=== PATIENT | male | born 1950 | race Caucasian/White ===

== ENCOUNTER 2017-02-26 15:50 | Outpatient (CLI) | payer BC ==
--- NOTE | 2017-02-26 16:51 | RAD ---
ABDOMEN ONE VIEW 02/26/17 HISTORY: Renal calculi. COMPARISON: 02/26/16. FINDINGS: A large amount of stool is apparent throughout the colon and rectum. Renal outlines are predominantly obscured. Small calcification projecting over the lateral superior margin of the left renal shadow i s similar in appearance to the prior study. Phleboliths project over the pelvis. IMPRESSION: 1. Left renal calculus. 2. Constipation. POS: [facility]
[2017-02-26 17:08] LABS: Bilirubin Negative (Negative); Blood, Urine Negative (Negative); Clarity CLEAR (Clear); Glucose, Urine (Dipstick) Negative (Negative); Leukocyte Negative (Negative); Nitrite Negative (Negative); Protein, Urine (Dipstick) Negative (Neg-Trace); Specific Gravity, Urine 1.028 (1.002-1.036); pH, Urine 6.5 (5.0-9.0)
--- NOTE | 2017-02-26 17:09 | ULT ---
RENAL ULTRASOUND 02/26/17 COMPARISON: 02/26/16 CLINICAL HISTORY: Renal calculi. FINDINGS: No overt hydronephrosis of the right kidney. There is mild prominence of the left renal collecting sy stem, similar appearing, which may be on the basis of parapelvic cyst formation. The described calcif ication of concurrent radiograph is not well depicted on the basis of this exam. Urinary bladder is g rossly unremarkable. IMPRESSION: Similar appearance of left kidney which may be on the basis of parapelvic cyst formation. No discrete shadowing nephrolithiasis evident sonographically. POS: [facility]
[2017-02-26 17:10] LABS: Bacteria/HPF None Seen HPF (None Seen); Hyaline Casts/LPF 0-3 HYALINE CAST LPF (0-3 Hyaline); RBC/HPF None Seen HPF (0-3); Squamous Epithelial None Seen HPF (0-3); WBC/HPF 0-3 HPF (0-3)
[2017-02-26 17:18] LABS: Anion Gap 13 mmol/L (10-20); BUN (Urea Nitrogen) 23 mg/dL (8.4-25.7); Calc. Creatinine Clearance 0 mL/min (70-130); Carbon Dioxide 25 mmol/L (23-31); Chloride 107 mmol/L (98-107); Estimated GFR-MDRD 70; Glucose 80 mg/dL (80-115); Potassium 4.1 mmol/L (3.5-5.1); Sodium 141 mmol/L (136-145)
== END 2017-02-26 15:51 | disposition home or self-care (01) ==
LOC: ULT 15:50
PROVIDERS: ATTEND Urology
DX: Z12.5 Encounter for screening for malignant neoplasm of prostate (principal); N20.0 Calculus of kidney; N28.1 Cyst of kidney, acquired; N40.1 Benign prostatic hyperplasia with lower urinary tract symptoms; R35.0 Frequency of micturition; K59.00 Constipation, unspecified
CPT/HCPCS: 74018; 76770; 80048; 81001; 87086; 88112; G0103

== ENCOUNTER 2017-04-30 09:19 | Outpatient (CLI) | payer BC ==
[2017-04-30] MEDS ORDERED: Iopamidol 370 76% 100 ML VIAL ONE (09:32)
== END 2017-04-30 09:20 | disposition home or self-care (01) ==
LOC: BICCT 09:19
PROVIDERS: ATTEND Urology
DX: R31.0 Gross hematuria (principal); N20.0 Calculus of kidney; N28.1 Cyst of kidney, acquired
CPT/HCPCS: 74178

== ENCOUNTER 2017-05-08 11:39 | Outpatient (CLI) | payer BC ==
[2017-05-08 13:14] LABS: Hemoglobin 15.4 g/dL (14.0-18.0); Mean Corpuscular Hemoglobin 34.1 pg (27.0-31.0); Mean Platelet Volume 7.8 fL (7.4-10.4); Platelet Count 162 thou/uL (130-400); RBC Distribution Width 11.6 % (11.5-14.5); Red Blood Cell (RBC) Count 4.52 mill/uL (4.70-6.10); White Blood Cell (WBC) Count 4.4 thou/uL (4.8-10.8)
[2017-05-08 13:19] LABS: Bilirubin Negative (Negative); Blood, Urine Negative (Negative); Clarity CLEAR (Clear); Glucose, Urine (Dipstick) Negative (Negative); Leukocyte Negative (Negative); Nitrite Negative (Negative); Protein, Urine (Dipstick) Negative (Neg-Trace); Specific Gravity, Urine 1.021 (1.002-1.036)
[2017-05-08 13:23] LABS: PTT 28.4 SEC (22.9-36.1)
[2017-05-08 13:25] LABS: Bacteria/HPF None Seen HPF (None Seen); Hyaline Casts/LPF 0-3 HYALINE CAST LPF (0-3 Hyaline); Squamous Epithelial 0-3 HPF (0-3); WBC/HPF 0-3 HPF (0-3)
[2017-05-08 13:42] LABS: Anion Gap 10 mmol/L (10-20); BUN (Urea Nitrogen) 14 mg/dL (8.4-25.7); Calc. Creatinine Clearance 0 mL/min (70-130); Calcium 9.3 mg/dL (7.8-10.44); Carbon Dioxide 24 mmol/L (23-31); Chloride 107 mmol/L (98-107); Estimated GFR-MDRD Greater than 90; Glucose 80 mg/dL (80-115); Potassium 4.4 mmol/L (3.5-5.1); Sodium 137 mmol/L (136-145)
[2017-05-08 13:48] LABS: RBC/HPF 0-3 HPF (0-3)
--- NOTE | 2017-05-21 22:49 | EKG ---
Test Reason : Blood Pressure : / mmHG Vent. Rate : 064 BPM Atrial Rate : 064 BPM P-R Int : 158 ms QRS Dur : 088 ms QT Int : 418 ms P-R-T Axes : 041 057 040 degrees QTc Int : 431 ms Normal sinus rhythm Normal ECG When compared with ECG of 17-JUN-2014 09:14, No significant change was found Confirmed by Vivek OLIVARES ([id number]) on 05/21/2017 10:49:12 PM Referred By: DESMOND Confirmed By:Vivek OLIVARES
== END 2017-05-08 11:40 | disposition home or self-care (01) ==
LOC: LABBT 11:39
PROVIDERS: ATTEND Urology
DX: Z01.818 Encounter for other preprocedural examination (principal); R31.0 Gross hematuria
CPT/HCPCS: 80048; 81001; 85027; 85610; 85730; 87086; 93005; 93010

== ENCOUNTER 2017-05-14 06:57 | Day surgery (SDC) | payer BC ==
[2017-05-08 12:27] VITALS: BMI 26.5
[2017-05-14] MEDS ORDERED: Iothalamate Meglumine 60% 50 ML VIAL FS ONE (10:34)
[2017-05-14] MEDS ORDERED: Fentanyl 100 MCG/2 ML VIAL ONE (10:36)
[2017-05-14] MEDS ORDERED: Levofloxacin 500 mg/D5W 100 ml Premix Bag ONE (10:41)
[2017-05-14] MEDS ORDERED: Dexamethasone 20 MG/5 ML VIAL ONE (13:05)
[2017-05-14] MEDS ORDERED: Lidocaine 1% PF 5 ML VIAL ONE (13:05)
[2017-05-14] MEDS ORDERED: PROPOFOL 200 MG/20 ML VIAL ONE (13:05)
[2017-05-14] MEDS ORDERED: Ondansetron HCl/PF 4 MG/2 ML Vial ONE (13:05)
[2017-05-14] MEDS ORDERED: Oxybutynin 5 MG TAB ONE (13:14)
[2017-05-14] MEDS ORDERED: Phenazopyridine HCl 97.5 MG TABLET ONE (13:17)
--- NOTE | 2017-05-14 14:16 | OP ---
DATE OF PROCEDURE: 05/14/2017 PREOPERATIVE DIAGNOSES: 1. 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 2. History of benign prostatic hypertrophy status post transurethral resection of prostate. 3. History of nonobstructing bilateral renal calculi, right punctate, left renal calculi measuring 4 x 7 mm. 4. History of bilateral peripelvic cysts, left greater than right. 5. History of gross hematuria. POSTOPERATIVE DIAGNOSES: 1. 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 2. History of benign prostatic hypertrophy status post transurethral resection of prostate. 3. History of nonobstructing bilateral renal calculi, right punctate, left renal calculi measuring 4 x 7 mm. 4. History of bilateral peripelvic cysts, left greater than right. 5. History of gross hematuria. PROCEDURES: Cystoscopy, proximal penile urethral biopsy, fulguration of biopsy site, Murray catheter placement. SURGEON: July Perez D.O. ANESTHESIA: LMA. COMPLICATIONS: None apparent. SPECIMEN: Proximal penile pedunculated nonspecific urethral lesion biopsy. INTRAOPERATIVE FINDINGS: 1. Bladder demonstrates no recurrent large bladder diverticulum, small scattered cellulae formation. 2. History of TURP with good TUR defect, no evidence of bladder neck contracture. 3. As previously noted on flexible cystoscopy, a pedunculated dorsal lesion located in the proximal penile urethra distal to the sphincter approximately 6- 7 mm. INDICATIONS FOR THE PROCEDURE AND HISTORY: Mr. Esquivel is a 66-year-old male with history of very large bladder diverticulum, status post diverticulectomy status post TURP. His voiding status is stable. He does have a prior history of gross hematuria and cytology has been negative. Last cytology negative of record is from 02/2017. He presented for repeat cystoscopy as he had gross hematuria. Restaging CT demonstrated nonobstructing bilateral renal calculi. Cystoscopy locally demonstrated a nonspecific with pedunculated proximal penile urethral lesion. Advised regarding biopsy under anesthesia as it is a difficult location to biopsy under local. The patient desired to proceed. Risks and complications of the procedure was reviewed with him in detail including, but not limited to, bleeding, pain, infection, possible stricture, UTI. All questions answered to his satisfaction and he desired to proceed. DESCRIPTION OF THE PROCEDURE: After an informed consent is signed, the patient is taken to the operating room, placed in dorsal lithotomy position. Bilateral NASRA hose, SCDs, and broad-spectrum antibiotics were provided. A 21 Armenian cystoscope was utilized for cystoscopy which demonstrated subtle early proximal penile urethral stricture not warranting treatment. Just proximal to this in the proximal penile urethra, there is pedunculated 6-7 mm mucosal lesion of unclear etiology. Does not have a typical appearance of transitional cell carcinoma. The prostatic urethra demonstrated a good TUR defect with no evidence of bladder neck contracture. The bladder was entered with ease. The UO's were identified with clear efflux of urine. There were approximately 6-8 mm proximal to the bladder neck. There is no gross evidence of recurrent large bladder diverticulum intermittent areas of cellulae trabeculation were noted. At this time, we used an endoscopic biopsy forceps to engage the lesion and this was removed completely with biopsy forceps. The bed of the biopsy was fulgurated with spot cautery using endoscopic Bugbee. I did not aggressively cauterized to prevent urethral stricture. Given that it was fulgurated in this region as well, I did leave an indwelling Murray catheter. An 18 Armenian 2-way was able to be passed without any issues. This was attached to leg bag gravity bag without issues. We will follow up with me on Friday for catheter removal and review of pathology. He is discharged with [place] 5/325, ciprofloxacin, Colace p.r.n. MTDD
== END 2017-05-15 16:10 | disposition home or self-care (01) ==
LOC: SDC 06:57
PROVIDERS: ATTEND Urology
PROC: 0T5D8ZZ Destruction of Urethra, Via Natural or Artificial Opening Endoscopic (ICD-10-PCS; principal; 2017-05-14)
PROC: 0TBD8ZX Excision of Urethra, Via Natural or Artificial Opening Endoscopic, Diagnostic (ICD-10-PCS; principal; 2017-05-14)
DX: N36.2 Urethral caruncle (principal); N35.9 Urethral stricture, unspecified; N52.9 Male erectile dysfunction, unspecified; N40.1 Benign prostatic hyperplasia with lower urinary tract symptoms; R35.0 Frequency of micturition; I10 Essential (primary) hypertension; E78.5 Hyperlipidemia, unspecified; M17.10 Unilateral primary osteoarthritis, unspecified knee; M47.9 Spondylosis, unspecified; J30.9 Allergic rhinitis, unspecified; G89.29 Other chronic pain; M54.5 Low back pain; Z87.442 Personal history of urinary calculi; Z87.891 Personal history of nicotine dependence; Z79.51 Long term (current) use of inhaled steroids; Z79.899 Other long term (current) drug therapy; Z98.890 Other specified postprocedural states
CPT/HCPCS: 23350; 88305; A9579; J0171; J1100; J1956; J2001; J2405; J2704; J3010; J7050; Q9961

== ENCOUNTER 2017-08-28 12:01 | Outpatient (CLI) | payer BC ==
--- NOTE | 2017-08-28 14:04 | RAD ---
KUB: INDICATION: History of bladder diverticulum. COMPARISON: Prior exam dated 02/16/17. FINDINGS: Left nephrolithiasis is stable. No suspicious calcification along the expected course of the renal c ollecting systems. There is scattered degenerative change of the lumbar spine as well as both hips. Compression abnormality of T12 is stable. The bowel gas pattern is unobstructed. IMPRESSION: 1. Stable left nephrolithiasis. 2. Stable compression abnormality of T12. POS: [facility]
== END 2017-08-28 12:02 | disposition home or self-care (01) ==
LOC: RAD 12:01
PROVIDERS: ATTEND Urology
DX: N32.3 Diverticulum of bladder (principal); N20.0 Calculus of kidney; M43.8X4 Other specified deforming dorsopathies, thoracic region
CPT/HCPCS: 36415; 74018; 80053; 80061; 81001; 83036; 84443; 85025; G0103

== ENCOUNTER 2018-01-14 09:52 | Outpatient (CLI) | payer MEDICARE, OTHER ==
--- NOTE | 2018-01-14 11:51 | BD ---
DEXA BONE DENSITY STUDY: History: 67-year-old male with osteopenia. History of vertebral compression. FINDINGS: Lumbar Spine: BMD (g/cm2) L1 0.796 T-Score: -2.5 L2 0.808 T-Score: -2.6 L3 0.804 T-Score: -2.7 L4 0.897 T-Score: -1.8 L1-L4 0.828 T-Score: -2.4 Femoral Neck: 0.664 T-Score: -2.6 Total Femur: 0.804 T-Score: -1.5 Impression: Osteopenia. This patient has a 10-year fracture risk of a major osteopenic fracture of 12% and a hip fracture of 2.4%. POS: [facility]
--- NOTE | 2018-01-14 12:28 | RAD ---
RADIOGRAPH CHEST 2 VIEWS: DATE: 01/14/2018 TIME: 10:32 a.m. HISTORY: A 67-year-old male with cough and chest pain. History of compression fracture in the mid back, in the summer. The patient states, heard a pop and is hurting at mid right back. COMPARISON: No prior chest radiographs or any imaging studies of the chest or thoracic spine at [facility], [facility], or [facility]. FINDINGS: The thoracic aorta is tortuous and ectatic. There is no evidence of air space density, pneumothorax, or pulmonary edema. There is no cardiomegaly or pleural effusion. There is anterior wedge compress ion deformity of one of the mid thoracic vertebral bodies, as seen on the lateral view. IMPRESSION: 1) No acute cardiopulmonary findings. 2) Ectasia of thoracic aorta. 3) Compression fracture of one of the mid thoracic vertebral bodies, of indeterminate age. pardeepr POS: [facility]
== END 2018-01-14 09:53 | disposition home or self-care (01) ==
LOC: BICMAMMO 09:52
PROVIDERS: ATTEND Family Medicine
DX: R07.9 Chest pain, unspecified (principal); J06.9 Acute upper respiratory infection, unspecified; I77.810 Thoracic aortic ectasia; S22.009A Unspecified fracture of unspecified thoracic vertebra, initial encounter for closed fracture; M85.89 Other specified disorders of bone density and structure, multiple sites
CPT/HCPCS: 71046; 77080

== ENCOUNTER 2018-01-28 09:36 | Outpatient (CLI) | payer MEDICARE, OTHER ==
--- NOTE | 2018-01-28 11:14 | RAD ---
FRONTAL AND LATERAL IMAGING OF THE THORACIC SPINE: Date: 01-28-18 Comparison: None available. History: Thoracic vertebral body fracture, right sided rib pain and back pain. FINDINGS: Thoracic pedicles appear intact on the frontal imaging. There is a severe anterior wedge compression fracture of T12, which demonstrates approximately 50-60% loss of vertebral body height anteriorly, unchanged when compared to a chest radiograph performed . In addition, there is an anterior wedge compression fracture of T7 vertebral body with mild an terior wedging, also stable when compared to 01-14-18 chest radiograph. No new fracture is seen. No an terolisthesis or retrolisthesis is evident within the thoracic spine. There are scattered degenerativ e changes within the cervical spine, only partially evaluated on this examination, best seen at C5-6 and C6-7. IMPRESSION: 1. Anterior wedge compression deformities of T12 and T7, as detailed above. POS: [facility]
--- NOTE | 2018-01-28 15:32 | CT ---
CT OF THE CHEST WITHOUT CONTRAST: Date: 01-28-18 Comparison: None available. History: Back pain, right sided rib pain, prior spinal surgery. Technique: Axial CT imaging at 5 mm intervals from the thoracic inlet to the upper abdomen without co ntrast. Coronal reformatted imaging obtained. FINDINGS: The lack of contrast media limits assessment of the imaged viscera, bowel, vascular structures and fo r lymphadenopathy. Lobulated areas of lateral soft tissue density involving the mid right hemithorax which are new when compared to 01-14-18 radiographs. Limited assessment for lymphadenopathy appears grossly unremarkable. The imaged upper abdomen demonstrates a few scattered hepatic hypodensities, likely on the basis of h epatic cysts. There is an adrenal lesion on image 63, measuring 1.5 cm in transverse dimension, consi stent with adrenal adenoma as evaluated on 11-02-13 MRI of the abdomen. Similar findings are noted wit hin the left adrenal gland. Nonobstructing partially imaged stone noted in midpole of left kidney measuring 6 mm. No left pleural fluid. No significant mediastinal or paracardial fluid. No discrete pulmonary parenchymal mass lesion or nodule is noted within the left lung. There is an acute fracture involving the posterolateral aspect of the 8th rib on the right with mild displacement. There is an adjacent pleural based density suggesting an associated pleural based hemat cristino measuring 2.9 x 1.6 cm in greatest AP/transverse dimension. A subtle nondisplaced lateral right 9th rib fracture is suspected on image 53. There is also an acute mildly displaced posterior right 7th rib fracture with a small nodular focus of pleural based densit y suggested associated blood products as well. There is bilateral degenerative change involving the glenohumeral joints, right greater than left. No acute left sided rib fracture is appreciated. There is a small right sided pleural effusion which could signify a small hemothorax given the above described acute right sided rib fractures. There is an age indeterminate superior endplate fracture of L2, partially visualized. There is a stab le anterior wedge compression deformity in T12 and T7. IMPRESSION: 1. Acute right sided rib fractures with a small right pleural effusion/pneumothorax. There is pleural based density associated with the fractures of the right ribs as detailed above for which follow up radiograph advised to document resolution. 2. Nonobstructing stone of the midpole left kidney. 3. Vertebral body fractures as detailed above. POS: [facility]
--- NOTE | 2018-01-28 16:40 | MRI ---
MRI THORACIC SPINE NONCONTRAST: Date: 01/28/18 HISTORY: 67-year-old male with ICD-10: S22.009A: Unspecified fracture of unspecified thoracic vertebra, ini tial encounter for closed fracture. COMPARISON: No prior MRIs or CTs of the thoracic spine. FINDINGS: There is an old compression fracture of T12 vertebral body with maximum of approximately 75% far ante rior loss of height. There is a large Schmorl's node occupying a significant portion of the remaining volume of the T12 vertebral body with high signal intensity on the STIR sequence, but there is no yao ne marrow edema. Minimal bony retropulsion. This was present on prior lumbar spine radiograph of 12/11. There is anterior wedge compression loss of height of the T7 vertebral body, with approximately 50-60 % loss of height anteriorly. This compression fracture was present on previous lateral view recent ch est radiograph of a few days ago, 01/14/18. There is mixed signal abnormality involving the T7 verteb ral body. The majority of the T7 vertebral body has heterogeneously increased T2 signal intensity and also heterogeneously increased T1 signal abnormality. There is an anterior irregularly shaped band o f very hypointense T1 and T2 signal, representing compressed component of fractured bone. There is T1 hyperintense signal within the T6-7 disc space which could represent hemorrhage within th e disc space. There is diffusely abnormally mildly T2 hyperintense and mildly T1 hypointense signal throughout the entire T8 vertebral body, which maintains its height. There is also T1 hypointense and T2 hyperintense bone marrow signal abnormality involving the right p edicles of T7 and T8, extending into their superior articular facets, and there is edema in the poste rior paraspinal tissues around those posterior elements on the right side. 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 The thoracic spinal cord is normal in size and signal. There is multilevel mild and moderate degenerative disc disease, with disc bulge-osteophytic bar complexes encroaching upon th e spinal canal at all levels. There is mild to moderate central spinal canal stenosis at T10-11. Othe rwise no significant central spinal canal stenosis at other levels. Conus medullaris terminates at L1 . Bilateral moderate neural foraminal stenosis at T10-11. IMPRESSION: 1. Recent, subacute or acute, compression fracture of T7. 2. Diffuse bone marrow signal abnormality of the entire T8 vertebral body, which has not lost its he ight. This bone marrow signal abnormality also involves the right posterior elements of T7 and T8. Th ee could represent extensive bone contusions/microfractures. 3. Old compression fracture of T12. 4. No cord impingement. 5. Moderate thoracic spondylosis at lower levels. POS: [facility]
== END 2018-01-28 09:37 | disposition home or self-care (01) ==
LOC: TBSIIMAG 09:36
PROVIDERS: ATTEND Surgery
DX: S22.009A Unspecified fracture of unspecified thoracic vertebra, initial encounter for closed fracture (principal); S22.41XA Multiple fractures of ribs, right side, initial encounter for closed fracture; M43.8X4 Other specified deforming dorsopathies, thoracic region; N20.0 Calculus of kidney; R93.7 Abnormal findings on diagnostic imaging of other parts of musculoskeletal system; M47.814 Spondylosis without myelopathy or radiculopathy, thoracic region
CPT/HCPCS: 71250; 72072; 72146

== ENCOUNTER 2018-03-03 14:25 | Outpatient (CLI) | payer MEDICARE, OTHER ==
--- NOTE | 2018-03-03 15:21 | RAD ---
THORACIC SPINE FOUR VIEWS: History: Thoracic pain. Follow up compression fractures. Comparison: 01-28-18 FINDINGS: The severe anterior wedge compression deformity involving the T12 vertebra is again seen and appears unchanged. There is loss of disc space at T11 and T12. There is an anterior wedge compression involving the mid thoracic vertebra which appears to represent T7. This anterior wedge compression is also stable from the prior exam. Minimal height loss at T8 is stable. Mild anterior osteophytes. Slight retropulsion of the posterior superior corner of T12 is unchanged. IMPRESSION: Stable compression deformities involving the T7 and T12 vertebrae when compared to prior exam. POS: [facility]
== END 2018-03-03 14:26 | disposition home or self-care (01) ==
LOC: TBSIIMAG 14:25
PROVIDERS: ATTEND Neurological Surgery
DX: M54.6 Pain in thoracic spine (principal); M48.8X4 Other specified spondylopathies, thoracic region
CPT/HCPCS: 72072

== ENCOUNTER 2018-03-16 17:00 | Outpatient (CLI) | payer MEDICARE, OTHER | END 2018-03-16 17:01 | disposition home or self-care (01) | LOC: SLEEPLAB 17:00 | PROVIDERS: ATTEND Internal Medicine Critical Care Medicine | DX: G47.33 Obstructive sleep apnea (adult) (pediatric) (principal); R06.83 Snoring; R09.89 Other specified symptoms and signs involving the circulatory and respiratory systems; R53.83 Other fatigue; R40.0 Somnolence | CPT/HCPCS: 95806 ==

== ENCOUNTER 2018-06-08 20:30 | Outpatient (CLI) | payer MEDICARE, OTHER | END 2018-06-08 20:31 | disposition home or self-care (01) | LOC: SLEEPLAB 20:30 | PROVIDERS: ATTEND Internal Medicine Critical Care Medicine | DX: G47.33 Obstructive sleep apnea (adult) (pediatric) (principal) | CPT/HCPCS: 95811 ==

== ENCOUNTER 2018-07-09 13:44 | Outpatient (CLI) | payer MEDICARE, OTHER ==
[~2018-07-09 13:44] MED LIST: Iopamidol 370 76% 100 ML VIAL ONE
[2018-07-09 14:16] LABS: Estimated GFR-MDRD - POC Greater than 90
--- NOTE | 2018-07-09 14:47 | CT ---
Exam: CHEST CT WITH CONTRAST: COMPARISON: 01/28/2018. HISTORY: Follow-up right lung mass. FINDINGS: No mediastinal mass, lymphadenopathy or hematoma. Heart size is within normal limits. No significant pericardial fluid. The thoracic and upper abdominal aorta have caliber. No periaortic fat stranding Multiple hypodensities in the liver. The majority of these hypodensities are too small to characteriz e. Largest hypodensity in the left hepatic lobe measures 3.6 x 3.2 cm and has an attenuation coefficient of less than 6 Hounsfield units, suggesting a cyst. Trachea and central bronchi are patent. Right lung: No suspicious masses in the upper lobe, middle lobe, or lower lobe. Left lung: No suspicious masses in the left upper lobe or lower lobe. Linear opacities in the lingula and left lower lobe likely represent scar/subsegmental atelectasis. There are no lytic or blastic lesions in the osseous structures. Multiple compression deformities, pr esumed to be chronic in the thoracic spine at approximately T7 and T12 level. Superior endplate injury at L2 is also noted. Multiple old left rib fractures. There are multiple healed right rib fractures. The previously noted pleural-based opacity in the right hemithorax which measured 2.9 cm is no longer evident. This opacity was at the level of a fracture and likely represented a posttraumatic hematoma. This hematoma has subsequently resolved. No right thoracic pleural-based masses. Incidental hemangioma at the right aspect of T10. IMPRESSION: 1. Interval resolution of previously noted pleural-based mass in the right hemithorax. Previously delilah ntified opacity likely represented a posttraumatic hematoma. 2. Multiple bilateral rib fractures. 3. Multiple compression deformities of the spine, unchanged. Transcribed Date/Time: 07/09/2018 3:23 PM
== END 2018-07-09 13:45 | disposition home or self-care (01) ==
LOC: BICCT 13:44
PROVIDERS: ATTEND Internal Medicine Critical Care Medicine
DX: R91.8 Other nonspecific abnormal finding of lung field (principal); S22.43XA Multiple fractures of ribs, bilateral, initial encounter for closed fracture; M43.9 Deforming dorsopathy, unspecified
CPT/HCPCS: 71260; 82565; Q9967

== ENCOUNTER 2018-09-15 16:07 | Outpatient (CLI) | payer MEDICARE, OTHER ==
--- NOTE | 2018-09-15 17:59 | RAD ---
SUPINE ABDOMEN: Date: 09/15/18 INDICATION: Prostatic hypertrophy. Lower urinary tract symptoms. COMPARISON: 08/28/17. FINDINGS: Scattered stool and gas throughout the colon. Small bowel gas pattern is unremarkable. Focal calcific ation overlying the left upper abdomen is stable from the prior exam and may be extrarenal. No other definite urinary tract calcification. Phlebolith type calcifications in the peripheral pelvis appear stable. IMPRESSION: Unremarkable bowel gas pattern. Calcifications are stable as described above. POS: [facility]
== END 2018-09-15 16:08 | disposition home or self-care (01) ==
LOC: RAD 16:07
PROVIDERS: ATTEND Urology
DX: N20.0 Calculus of kidney (principal); N40.1 Benign prostatic hyperplasia with lower urinary tract symptoms; R93.5 Abnormal findings on diagnostic imaging of other abdominal regions, including retroperitoneum
CPT/HCPCS: 74018; 80048; 81001; 87086; G0103; 36415

== ENCOUNTER 2019-01-28 14:53 | Outpatient (CLI) | payer MEDICARE, OTHER ==
--- NOTE | 2019-01-28 15:39 | RAD ---
XR Heel Rt 2 View STANDARD 01/28/2019 12:00 AM INDICATION: Right heel pain COMPARISON: None. FINDINGS: There is a 1 cm osseous excrescence protruding off the medial margin of the calcaneal body suspicious for small osteochondroma. No acute fracture is evident. There is moderate enthesopathic change off of the calcaneus. Mild degenerative changes seen involving the mid foot and subtalar joint . Mild degenerative changes are seen involving visualized aspects of the tibiotalar joint. IMPRESSION: Small benign-appearing osseous excrescence protruding off the medial margin of the calcan eal body suspicious for tiny osteochondroma. MRI evaluation may be helpful for additional characterization of potential complications. No acute fracture or subluxation demonstrated. There is scattered degenerative and osteoarthritic change present.
== END 2019-01-28 14:54 | disposition home or self-care (01) ==
LOC: BICRAD 14:53
PROVIDERS: ATTEND Podiatrist
DX: M72.2 Plantar fascial fibromatosis (principal)

== ENCOUNTER 2019-03-09 13:47 | Emergency (ER) | payer MEDICARE, OTHER ==
[2019-03-09] MEDS ORDERED: methylPREDNISolone Sod Succ/PF 125 MG/2 ML VIAL ONE (14:11)
[2019-03-09] MEDS ORDERED: Famotidine/PF 20 mg/2ml Vial ONE (14:11)
[2019-03-09] MEDS ORDERED: diphenhydrAMINE 50 MG/ML VIAL ONE (14:11)
== END 2019-03-09 15:44 | disposition home or self-care (01) ==
LOC: ERS 13:47
DX: T78.40XA Allergy, unspecified, initial encounter (principal); I10 Essential (primary) hypertension; Z87.891 Personal history of nicotine dependence; Z79.899 Other long term (current) drug therapy
CPT/HCPCS: 96374; 96375; J1200; J2930; S0028

== ENCOUNTER 2020-12-07 11:51 | Outpatient (CLI) | payer MEDICARE, OTHER | END 2020-12-07 11:52 | disposition home or self-care (01) | LOC: BICRAD 11:51 | PROVIDERS: ATTEND Urology | DX: N40.1 Benign prostatic hyperplasia with lower urinary tract symptoms (principal); N20.0 Calculus of kidney; Z12.5 Encounter for screening for malignant neoplasm of prostate; R35.0 Frequency of micturition | CPT/HCPCS: 74018; 80048; 81001; G0103; 36415 ==

== ENCOUNTER 2022-03-01 10:48 | Outpatient (CLI) | payer MEDICARE, OTHER | END 2022-03-01 10:49 | disposition home or self-care (01) | LOC: BICMAMMO 10:48 | PROVIDERS: ATTEND Family Medicine | DX: M81.0 Age-related osteoporosis without current pathological fracture (principal); M85.89 Other specified disorders of bone density and structure, multiple sites | CPT/HCPCS: 77080 ==

== ENCOUNTER 2022-03-01 13:34 | Outpatient (CLI) | payer MEDICARE, OTHER ==
[2022-03-01 14:25] LABS: Hemoglobin 15.8 g/dL (13.5-17.5); Mean Corpuscular HGB CONC 34.1 g/dL (32.0-36.0); Mean Corpuscular Hemoglobin 32.9 pg (27.0-33.0); Mean Corpuscular Volume 96.7 fl (81.2-95.1); Mean Platelet Volume 9.8 fl (7.4-10.4); Platelet Count 200 10x3/uL (150-450); RBC Distribution Width 12.4 % (11.5-14.5); White Blood Cell (WBC) Count 5.3 10x3/uL (3.5-10.5)
[2022-03-01 14:35] LABS: Bilirubin Neg (Negative); Blood, Urine Negative (Negative); Clarity Slightly Cloudy (Clear); Glucose, Urine (Dipstick) Normal (Negative); Ketone, Urine Negative (Negative); Leukocyte Negative (Negative); Nitrite Negative (Negative); Protein, Urine (Dipstick) Negative (Neg-Trace); Urobilinogen Normal mg/dL (Less than 2)
[2022-03-01 14:45] LABS: Bacteria/HPF None Seen HPF (None Seen); Squamous Epithelial 0-3 HPF (0-3); Transitional Epithelial 0-3 HPF (None Seen); WBC/HPF 0-3 HPF (0-3)
[2022-03-01 14:50] LABS: Anion Gap 14 mmol/L (10-20); BUN (Urea Nitrogen) 21 mg/dL (8.4-25.7); Calc. Creatinine Clearance 0 mL/min (70-130); Calcium 9.4 mg/dL (7.8-10.44); Carbon Dioxide 26 mmol/L (23-31); Chloride 105 mmol/L (98-107); Estimated GFR 96; Glucose 81 mg/dL (80-115); Sodium 141 mmol/L (136-145)
[2022-03-01 14:51] LABS: INR-International Normal Ratio 0.9; PTT 26.7 sec (22.0-33.0); Prothrombin Time 9.7 sec (9.5-12.1)
[2022-03-01 16:19] LABS: RBC/HPF 0-3 HPF (0-3)
== END 2022-03-01 13:35 | disposition home or self-care (01) ==
LOC: LABBT 13:34
PROVIDERS: ATTEND Urology
DX: Z01.818 Encounter for other preprocedural examination (principal); Z12.5 Encounter for screening for malignant neoplasm of prostate; N40.1 Benign prostatic hyperplasia with lower urinary tract symptoms; N28.1 Cyst of kidney, acquired; R35.0 Frequency of micturition; R33.9 Retention of urine, unspecified; N32.3 Diverticulum of bladder; R31.0 Gross hematuria; N20.0 Calculus of kidney; N52.9 Male erectile dysfunction, unspecified
CPT/HCPCS: 80048; 81001; 85027; 85610; 85730; 87086; 93005; 93010

== ENCOUNTER 2022-03-13 06:06 | Day surgery (SDC) | payer MEDICARE, OTHER ==
[2022-03-12 12:33] VITALS: BMI 27.6
[2022-03-13] MEDS ORDERED: Midazolam HCl 2 mg/2 ml Vial ONE (07:06)
[2022-03-13] MEDS ORDERED: Iopamidol 15 ML ONE (07:06)
[2022-03-13] MEDS ORDERED: Fentanyl 100 MCG/2 ML VIAL ONE (07:16)
[2022-03-13] MEDS ORDERED: Levofloxacin 500 mg/D5W 100 ml Premix Bag ONE (07:18)
[2022-03-13] MEDS ORDERED: NEOSTIGMINE 3 MG/3 ML SYR 3 MG/3 ML SYRINGE ONE (07:31)
[2022-03-13] MEDS ORDERED: ePHEDrine 50 MG/ML VIAL ONE (07:31)
[2022-03-13] MEDS ORDERED: Rocuronium Bromide 10 MG/ML (10ML VIAL) ONE (07:31)
[2022-03-13] MEDS ORDERED: Ondansetron PF 4 MG/2 ML Vial ONE (07:31)
[2022-03-13] MEDS ORDERED: PROPOFOL 200 MG/20 ML VIAL ONE (07:31)
[2022-03-13] MEDS ORDERED: Glycopyrrolate 0.2 MG/ML 5 ML SYRINGE ONE (07:31)
[2022-03-13] MEDS ORDERED: Dexamethasone 20 MG/5 ML VIAL ONE (07:31)
[2022-03-13] MEDS ORDERED: Lidocaine 1% PF 5 ML VIAL ONE (07:31)
[2022-03-13] MEDS ORDERED: Oxybutynin 5 MG TAB ONE (08:45)
[2022-03-13] MEDS ORDERED: Phenazopyridine HCl 100 MG TAB ONE (08:45)
== END 2022-03-13 10:20 | disposition home or self-care (01) ==
LOC: SDC 06:06
PROVIDERS: ATTEND Urology
PROC: 0T778DZ Dilation of Left Ureter with Intraluminal Device, Via Natural or Artificial Opening Endoscopic (ICD-10-PCS; principal; 2022-03-13)
DX: N20.0 Calculus of kidney (principal); N28.1 Cyst of kidney, acquired; N32.89 Other specified disorders of bladder; N52.9 Male erectile dysfunction, unspecified; I10 Essential (primary) hypertension; Z87.891 Personal history of nicotine dependence; Z79.899 Other long term (current) drug therapy
CPT/HCPCS: 74420; C1769; C2617; J1100; J1956; J2250; J2405; J2704; J3010; J3490; Q9967

== ENCOUNTER 2022-03-21 10:38 | Outpatient (CLI) | payer MEDICARE, OTHER ==
[2022-03-21 12:38] LABS: Hemoglobin 14.6 g/dL (13.5-17.5); Mean Corpuscular HGB CONC 34.4 g/dL (32.0-36.0); Mean Corpuscular Hemoglobin 33.5 pg (27.0-33.0); Mean Corpuscular Volume 97.2 fl (81.2-95.1); Mean Platelet Volume 10.8 fl (7.4-10.4); Platelet Count 209 10x3/uL (150-450); RBC Distribution Width 12.3 % (11.5-14.5); Red Blood Cell (RBC) Count 4.36 10x6/uL (4.32-5.72); White Blood Cell (WBC) Count 6.5 10x3/uL (3.5-10.5)
[2022-03-21 12:51] LABS: INR-International Normal Ratio 0.9; Prothrombin Time 9.8 sec (9.5-12.1)
[2022-03-21 12:59] LABS: Anion Gap 13 mmol/L (10-20); BUN (Urea Nitrogen) 21 mg/dL (8.4-25.7); Calc. Creatinine Clearance 0 mL/min (70-130); Calcium 9.3 mg/dL (7.8-10.44); Carbon Dioxide 24 mmol/L (23-31); Chloride 107 mmol/L (98-107); Estimated GFR 97; Glucose 100 mg/dL (80-115); Potassium 4.2 mmol/L (3.5-5.1); Sodium 140 mmol/L (136-145)
== END 2022-03-21 10:39 | disposition home or self-care (01) ==
LOC: LABBT 10:38
PROVIDERS: ATTEND Urology
DX: Z01.812 Encounter for preprocedural laboratory examination (principal); Z12.5 Encounter for screening for malignant neoplasm of prostate; N40.1 Benign prostatic hyperplasia with lower urinary tract symptoms; N28.1 Cyst of kidney, acquired; R35.0 Frequency of micturition; N32.3 Diverticulum of bladder; R33.8 Other retention of urine; R31.0 Gross hematuria; N20.0 Calculus of kidney; N52.9 Male erectile dysfunction, unspecified; N13.5 Crossing vessel and stricture of ureter without hydronephrosis; Z90.79 Acquired absence of other genital organ(s)
CPT/HCPCS: 80048; 81001; 85027; 85610; 85730; 87086

== ENCOUNTER 2022-03-27 05:59 | Day surgery (SDC) | payer MEDICARE, OTHER ==
[2022-03-25 12:26] VITALS: BMI 27.6
[2022-03-27] MEDS ORDERED: Iopamidol 30 ML ONE (06:34)
[2022-03-27] MEDS ORDERED: Fentanyl 100 MCG/2 ML VIAL ONE (07:14)
[2022-03-27] MEDS ORDERED: Dexmedetomidine 200 MCG/2 ML VIAL ONE (07:15)
[2022-03-27] MEDS ORDERED: Sodium Chloride 0.9% 100 ML ONE (07:23)
[2022-03-27] MEDS ORDERED: cefTRIAXone\\ROCEPHIN 2 GM VIAL ONE (07:23)
[2022-03-27] MEDS ORDERED: Metoclopramide HCl 10 MG/2 ML VIAL ONE (07:35)
[2022-03-27] MEDS ORDERED: Lidocaine 1% PF 5 ML VIAL ONE (07:35)
[2022-03-27] MEDS ORDERED: Glycopyrrolate 0.2 MG/ML 5 ML SYRINGE ONE (07:35)
[2022-03-27] MEDS ORDERED: Albuterol HFA (OR) 200 PUFF INH ONE (07:35)
[2022-03-27] MEDS ORDERED: Ketorolac Tromethamine 30 MG/ML VIAL ONE (07:35)
[2022-03-27] MEDS ORDERED: PROPOFOL 200 MG/20 ML VIAL ONE (07:35)
[2022-03-27] MEDS ORDERED: NEOSTIGMINE 3 MG/3 ML SYR 3 MG/3 ML SYRINGE ONE (07:35)
[2022-03-27] MEDS ORDERED: Rocuronium Bromide 10 MG/ML (10ML VIAL) ONE (07:35)
[2022-03-27] MEDS ORDERED: Ondansetron PF 4 MG/2 ML Vial ONE (07:35)
[2022-03-27] MEDS ORDERED: SUGAMMADEX SODIUM 200 MG/2 ML VIAL ONE (08:20)
[2022-03-27] MEDS ORDERED: Oxybutynin 5 MG TAB ONE (08:36)
[2022-03-27] MEDS ORDERED: Phenazopyridine HCl 100 MG TAB ONE (08:36)
[2022-03-27] MEDS ORDERED: HYDROcodone/Acetaminophen 5/325 mg Tablet ONE ×2 (09:59→12:01)
[2022-03-27] MEDS ORDERED: Promethazine HCl 25 MG/ML VIAL ONE (12:11)
== END 2022-03-27 13:46 | disposition home or self-care (01) ==
LOC: SDC 05:59
PROVIDERS: ATTEND Urology
PROC: 0TC18ZZ Extirpation of Matter from Left Kidney, Via Natural or Artificial Opening Endoscopic (ICD-10-PCS; principal; 2022-03-27)
PROC: 0T778DZ Dilation of Left Ureter with Intraluminal Device, Via Natural or Artificial Opening Endoscopic (ICD-10-PCS; 2022-03-27)
DX: N20.0 Calculus of kidney (principal); N28.1 Cyst of kidney, acquired; N28.89 Other specified disorders of kidney and ureter; I10 Essential (primary) hypertension; N52.9 Male erectile dysfunction, unspecified; M15.9 Polyosteoarthritis, unspecified; G89.29 Other chronic pain; M54.50 Low back pain, unspecified; Z87.891 Personal history of nicotine dependence; Z79.899 Other long term (current) drug therapy; Z88.4 Allergy status to anesthetic agent
CPT/HCPCS: 74420; C1758; C1769; C2617; J0696; J1885; J2405; J2550; J2704; J2765; J3010; J3490; Q9967

== ENCOUNTER 2023-06-18 14:04 | Outpatient (CLI) | payer MEDICARE, OTHER | END 2023-06-18 14:05 | disposition home or self-care (01) | LOC: BICULT 14:04 | PROVIDERS: ATTEND Urology | DX: N20.0 Calculus of kidney (principal); Z98.890 Other specified postprocedural states | CPT/HCPCS: 76770 ==